=== PATIENT | female | born 1950 | race Asian ===

== ENCOUNTER 2025-06-01 09:11 | Day surgery (SDC) | payer MEDICARE ==
[~2025-06-01 09:11] MED LIST: Dexamethasone 4 MG/ML 5 ML MDV ONE; EPINEPHrine 1 MG/ML SDV ONE; Ondansetron 4 MG/2 ML SDV ONE; Propofol 200 MG/20 ML SDV ONE; dexmedeTOMIDine HCl 200 MCG/2 ML SDV ONE; fentaNYL 100 MCG/2 ML SDV ONE
[2025-06-01] MEDS: Lactated Ringers 1,000 ML IV SCH (09:40)
[2025-06-01 10:15] LABS: CARBON DIOXIDE,CO2 29.0 mEq/L (21-32); CHLORIDE,CL 106.0 mEq/L (98-107); POTASSIUM,K 4.5 mEq/L (3.5-5.1); SODIUM,NA 141.0 mEq/L (136-145)
[2025-06-01] MEDS ORDERED: ePHEDrine 50 MG/ML SDV ONE (10:34)
[2025-06-01] MEDS ORDERED: Ketorolac 30 MG/ML SDV IVPUSH PRN (11:22)
[2025-06-01] MEDS ORDERED: Ondansetron 4 MG/2 ML SDV IVPUSH PRN (11:22)
[2025-06-01] MEDS ORDERED: fentaNYL 100 MCG/2 ML SDV IVPUSH PRN (11:22)
[2025-06-01] MEDS ORDERED: Ketorolac 15 MG/ML SDV IVPUSH PRN (13:05)
[2025-06-01] MEDS: Acetaminophen/HYDROcodone 325-5 MG Tab PO PRN (13:07)
== END 2025-06-01 13:25 | disposition home or self-care (01) ==
LOC: JD.SDS 09:11
PROVIDERS: ATTEND Orthopaedic Surgery
DX: S83.241A Other tear of medial meniscus, current injury, right knee, initial encounter (principal); M94.261 Chondromalacia, right knee; Z79.82 Long term (current) use of aspirin; Z79.899 Other long term (current) drug therapy
CPT/HCPCS: 29881; 36415; 80051; A9270; J0169; J0665; J0690; J1100; J2003; J2405; J2704; J3010; J7120; 01400; 99100; J3490